=== PATIENT | male | born 1995 | race Two or more races ===

== ENCOUNTER 2025-08-02 10:13 | Outpatient (AMB) | payer OTHER, SELFPAY ==
--- NOTE | 2025-08-02 10:31 | AM.OFFWIN_ITS ---
Intake Vital Signs 08/02/25 10:32 Height 5 ft 11 in Weight 201 lb BMI 28.0 BP 106/60 Blood Pressure Location Rt brachial Position Sitting Pulse 62 Pulse Source Pulse Oximeter Temp 97.9 F Temp Source Oral Pulse Oximetry (%) 99 Oxygen Delivery Method Room Air Intake Visit Reasons: EP-rt eye swollen & pain Intake Note: pt presents with right eye swelling, redness and crust for a couple days now after a stye had calmed down prior Allergies No Known Allergies Allergy (Verified 08/02/25 10:34) Do you need a note to return to daycare/school/sports/work: No HPI HPI Comments History of Present Illness Details History of Present Illness - The patient is a 30-year-old male pres enting with right upper eyelid redness and swelling. - The patient reports a recurrent issue with styes, with the current episode starting about a week ago. - Initially, the patient used over-the-c ounter patches which seemed to resolve the issue temporarily, but symptoms returned two days ago with increased severity. - The patient describes significant pain and swelling, particularly in the corner of the eye. - The condition has progressed to includ e eyelid redness and swelling. - He had crusting to the eye yesterday a nd can no longer feel a bump on the eyelid. - He has not seen his eye doctor in quit e some time. - The patient has a history of recurrent styes but has not previously experienced lofr-ss-ppbw episodes within a week. - He denies fever, chills, cold symptoms , visual loss or changes. - He denies FB or contact lens. Physical Exam General: Cooperative, healthy appearing, comfortable, no acute distress and well developed Orientation: Patient oriented x3 Limitations: No limitations Head: Normal to inspection Ears: Hearing grossly normal bilaterally Nose: Normal external nose present Face and sinus: Normal facial exam Eyes: Redness and swelling noted on the right upper eyelid. No hordeolum noted. Sclera is white, conjunctiva is pink. No discharge noted. PERRLA, EOMI. No TTP of the eyelid. Neck: Normal visual inspection and Yes full ROM. No lymphadenopathy noted. Respiratory: Normal respiratory effort and able to speak in complete sentences. Clear to auscultation bilaterally Cardiovascular: Regular rate and rhythm. Normal S1 and S2 Skin: No rashes or lesions noted Patient was informed and verbally consented to the use of an ambient scribe for clinic note documentation during this visit. Review of Systems Const All systems reviewed & are unremarkable except as noted in HPI and below Physical Exam Vital Signs: Last Vital Signs Temp 97.9 F 08/02/25 10:32 Pulse 62 08/02/25 10:32 BP 106/60 08/02/25 10:32 Pulse Ox 99 08/02/25 10:32 Oxygen Delivery Method Room Air 08/02/25 10:32 BMI result Body Mass Index 28.0 Assessment & Plan Assessment & Plan (1) Hordeolum eyelid: Code(s): H00.019 - Hordeolum externum unspecified eye, unspecified eyelid Qualifiers: Hordeolum type: internum Laterality: right Eyelid: upper Qualified Code(s): H00.021 - Hordeolum internum right upper eyelid (2) Cellulitis of right upper eyelid: Code(s): H00.031 - Abscess of right upper eyelid Plan plan- 1. Eyelid Cellulitis - Initiate oral antibiotics, specifically Keflex, to address the infection. - Prescribe antibiotic eye drops to manage local infection and prevent further complications. - Advise the patient to apply warm compresses to the affected area to alleviate symptoms. - Recommend follow-up with an theater set production designer for ongoing management and to establish regular eye care. 2. Recurrent Styes - Educate the patient on the importance of regular eye examinations to monitor and manage recurrent styes. - Suggest maintaining eyelid hygiene to prevent future occurrences. Medications: New polymyxin B sulf-trimethoprim 10,000 unit- 1 mg/mL while awake 1 drp ophthalmic-Right QID 10 mL 0RF 5 days cephalexin 500 mg PO Q6H 28 caps 0RF Coding Level of Care Code Est Pt Level 3 (27983) Diagnoses Hordeolum internum of right upper eyelid H00.021 Hordeolum type: internum Laterality: right Eyelid: upper Cellulitis of right upper eyelid H00.031
[2025-08-02 10:32] VITALS: BP 106/60; PULSE 62; TEMP 36.6; O2SAT 99; BMI 28.0
== END 2025-08-02 11:32 | disposition home or self-care (01) ==
PROVIDERS: PCP Internal Medicine; Visit Provider Physician Assistant Medical
DX: H00.021 Hordeolum internum right upper eyelid (principal); H00.031 Abscess of right upper eyelid

== ENCOUNTER 2025-08-22 10:08 | Outpatient (AMB) | payer OTHER, SELFPAY ==
[2025-08-22 10:19] VITALS: BP 114/72; PULSE 81; RESP 18; TEMP 36.2; O2SAT 98; BMI 28.8
--- NOTE | 2025-08-22 10:19 | A.OFFPC_ITS ---
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: No Accompanied by: Self / Same As Patient Allergies No Known Allergies Allergy (Verified 08/22/25 10:22) Medication List - Last Reconciled 08/22/25 by Jem Sullivan MD No Known Home Meds Tobacco use date assessed: 08/22/25 Dental Screening Dental Screen Date: 08/22/25 Did you have a dental visit in the last 12 months?: Yes Did you have a dental problem in the last 6 months where you did not have access to dental care?: No Was dental information given to patient?: Patient has dentist HPI HPI Comments History of Present Illness Details The patient is a 30-year-old male presenting to [facility] care. The patient main complaints are intermittent left sided Lower quadrant abdominal pain and irregular bowel movements. He reports intermittent, sharp abdominal pain on the left side that radiates to his groin, occurring two to three times a month without a clear trigger. He rates the pain as a 6 out of 10 and notes the area feels very tender during episodes. The patient also reports irregular bowel movements and constipation, sometimes straining in the bathroom for 30 to 60 minutes. He has made dietary changes, including eating rice, chicken, and vegetables, avoiding junk food and late- night meals, and substituting soda with seltzer water, but has not experienced weight loss or improvement in his bowel habits. His diet includes a significant amount of cheese, yogurt, and bread, though he has reduced his intake of red meat. He has not tried any obpf-lrf-dvrsgby fiber supplements for constipation. Additional symptoms include intermittent numbness and a tingling sensation in his feet and left arm, which has become more frequent recently. He recalls having issues with vitamin B as a child. He also notes a painful lesion on his hand and an occasional itchy, stinging sensation in his belly button when he urinates. He has experienced rectal bleeding in the past but is unsure if it was from stool or a cut, and he denies pain with bowel movement. The patient's paternal grandmother was diagnosed with colon cancer at age 55. He quit smoking cigarettes two years ago after starting at age 11 and now uses nicotine vapes and Zyn pouches. He drinks beer occasionally but not hard liquor. He leads a sedentary lifestyle. He takes no medications but does take a daily vitamin. [facility] Medical History Severe back pain Social History Alcohol intake: current Patient Tobacco Use Status: Former Tobacco user Tobacco use type: Cigarette e-Cigarette/Vaping Use: Never Used Substance Use Type: Marijuana Current occupational status: employed Current occupation: labor relations manager Cognitive needs: No Hearing needs: No Vision needs: No Questionnaire Thrive Questionnaire Date Thrive assessed: 08/22/25 I am a: Patient What is your living situation today?: I have a steady place to live Within the past 12 months, did the food you bought not last and you didn't have the money to get more?: I choose not to answer this question Within the past 12 months, did you worry whether your food would run out before you got money to buy more?: I choose not to answer this question Do you have trouble paying for medicines?: I choose not to answer this question Do you have trouble getting transportation to medical appointments?: I choose not to answer this question Do you have trouble paying your heating and electricity bill?: I choose not to answer this question Do you have trouble taking care of your child, family member or friend?: No Do you have trouble with day-to-day activities such as bathing, preparing meals, shopping, managing finances, etc.?: No Are you currently unemployed and looking for a job?: No Are you interested in more education?: Yes THRIVE Score: 0 AUDIT C Alcohol Use Questionnaire (AUDIT-C) 1. How often do you have a drink containing alcohol?: Monthly or less 2. How many drinks containing alcohol do you have on a typical day when you are drinking?: 1 or 2 3. How often do you have six or more drinks on one occasion?: Never Total Score: 1 MARLENE-7 AMB Questionnaire MARLENE-7 Feeling nervous, anxious, or on edge: 1 = Several days Not being able to stop or control worryin = Several days Worrying too much about different things: 1 = Several days Trouble relaxin = Several days Being so restless that it is hard to sit still: 0 = Not at all Becoming easily annoyed or irritable: 0 = Not at all Feeling afraid as if something awful might happen: 2 = More than half the days Total MARLENE-7 score (0-4 normal; 5-9 mild; 10-14 moderate; 15-21 severe): 6 Source: Developed by Drs. Jimmy Paez, Benita Kim, Osiel Benz and colleagues, with an educational tran from [employer]. Review of Systems Const Details: Positives besides what was mentioned in HPI are in BOLD Constitutional: No Weight Change, No Fever, No Chills, No Night Sweats, No Fatigue, No Malaise ENT/Mouth: No Hearing Changes, No Ear Pain, No Nasal Congestion, No Sinus Pain, No Hoarseness, No sore throat, No Rhinorrhea, No Swallowing Difficulty Eyes: No Eye Pain, No Swelling, No Redness, No Foreign Body, No Discharge, No Vision Changes Cardiovascular: No Chest Pain, No SOB, No PND, No Dyspnea on Exertion, No Orthopnea, No Claudication, No Edema, No Palpitations Respiratory: No Cough, No Sputum, No Wheezing, No Smoke Exposure, No Dyspnea Gastrointestinal: No Nausea, No Vomiting, No Diarrhea, No Constipation, No Pain, No Heartburn, No Anorexia, No Dysphagia, No Hematochezia, No Melena, No Flatulence, No Jaundice Genitourinary: No Dysmenorrhea, No DUB, No Dyspareunia, No Dysuria, No Urinary Frequency, No Hematuria, No Urinary Incontinence, No Urgency, No Flank Pain, No Urinary Flow Changes, No Hesitancy Musculoskeletal: No Arthralgias, No Myalgias, No Joint Swelling, No Joint Stiffness, No Back Pain, No Neck Pain, No Injury History Skin: No Skin Lesions, No Pruritis, No Hair Changes, No Breast/Skin Changes, No Nipple Discharge Neuro: No Weakness, No Numbness, No Paresthesias, No Loss of Consciousness, No Syncope, No Dizziness, No Headache, No Coordination Changes, No Recent Falls Psych: No Anxiety/Panic, No Depression, No Insomnia, No Personality Changes, No Delusions, No Rumination, No SI/HI/AH/VH, No Social Issues, No Memory Changes, No Violence/Abuse Hx., No Eating Concerns Heme/Lymph: No Bruising, No Bleeding, No Transfusions History, No Lymphadenopathy Endocrine: No Polyuria, No Polydipsia, No Temperature Intolerance Physical exam (Primary Care) Vital Signs: Last Vital Signs Temp 97.1 F 08/22/25 10:19 Pulse 81 08/22/25 10:19 Resp 18 08/22/25 10:19 BP 114/72 08/22/25 10:19 Pulse Ox 98 08/22/25 10:19 Oxygen Delivery Method Room Air 08/22/25 10:19 BMI result Body Mass Index 28.8 Tobacco/Smoking Status: Tobacco use Status Tobacco use date assessed 08/22/25 08/22/25 10:27 Patient Tobacco Use Status Former Tobacco user 08/22/25 10:27 Tobacco use type Cigarette 08/22/25 10:27 e-Cigarette/Vaping Use Never Used 08/22/25 10:27 Thrive Assessment: Date of Thrive Assessment Date Thrive assessed 08/22/25 08/22/25 10:19 Const Other: Pertinent findings are in BOLD GENERAL APPEARANCE NAD, activity normal for age, well developed/ well nourished, no cyanosis, pallor, or diaphoresis. EYES lids/conjunctiva normal. EARS/NOSE/THROAT Mucous membranes moist, nares normal, lips/teeth normal uvula midline without oral pharyngeal erythema, exudate or swelling TMs normal bilaterally. No lymphangitis/lymphedema. HEAD/NECK normocephalic atraumatic, no facial trauma, neck is supple. RESPIRATORY respiratory effort normal, speaks in full sentences, no tripod position, no accessory muscle use. Lungs clear to auscultation without rhonchi, wheezes, rales CARDIAC Regular rate and rhythm, no edema. ABDOMINAL Soft, ND/NT. No evidence of fluid wave. No pulsatile masses on exam, rebound tenderness, Zimmerman sign or pain over Mcburney's point. MUSCLES/EXTREMITIES No abnormal range of motion, no swelling. SKIN Warm, pink and dry. No rashes, dermatoses, petechiae or lesions. NEUROLOGICAL Speech is clear and appropriate. Normal level of consciousness. Gait and coordination are normal. 5/5 strength in all extremities. PSYCH Normal mood and affect. Judgement/competence is appropriate Coding Level of Care Code New Pt Level 4 (26322) New Pt Prev Care 18-39yr([id number] Diagnoses Healthcare maintenance Z00.00 Constipation, unspecified constipation type K59.00 Constipation type: unspecified constipation type Left lower quadrant abdominal pain R10.32 Abdominal location: left lower quadrant Tingling R20.2 Hand lesion L98.9 Assessment & Plan Assessment & Plan (1) Healthcare maintenance: Code(s): Z00.00 - Encounter for general adult medical examination without abnormal findings Category: Medical Plan: CBC, CMP, Lipid panel, A1C, TSH w T4, vit D. Shingles 2 doses when >50 yo. At 50. COVID: two doses. Advised patient to get COVID shot from retail pharmacy. Pneumococcal: 18-49 with CKD, lung disease, weakened immune system, Heart disease, DM, cochlear implant. Indicated at 50. Flu vaccine: Patient concerned about coverage for the FLU and TDap shots. Advised patient to check with his insurance about coverage. And if it is covered he can get it from retail pharmacy. Tdap: every 10 years. Ordered today. Colonoscopy: 45-75. At 45. AAA: 65 -75. NI. CT lun - 80. NI. PSA: 50 -70 every two years. HIV: HBV: HCV: (2) Constipation: Code(s): K59.00 - Constipation, unspecified Category: Medical Qualifiers: Constipation type: unspecified constipation type Qualified Code(s): K59.00 - Constipation, unspecified Plan: - A dietary trial of eliminating all dairy products for one week was recommended to assess for improvement. - Other potential dietary triggers discussed include gluten, red meat, and sugar. - Recommended increasing intake of salads and dried fruits like apricots to help with bowel movements. - MiraLAX was prescribed. (3) Abdominal pain: Code(s): R10.9 - Unspecified abdominal pain Category: Medical Qualifiers: Abdominal location: left lower quadrant Qualified Code(s): R10.32 - Left lower quadrant pain Plan: Physical exam was benign today. No groin tenderness or testicular masses or changes. Continue management of constipation as it might be exacerbating his pain. Advised patient to seek ED or urgent care during an acute episode. (4) Tingling: Comment: In his feet and right arm. Code(s): R20.2 - Paresthesia of skin Category: Medical Plan: Advised kirby that his symptoms might be due to vitamin deficiencies. We will check folate and vit B12 levels. A1C also to be checked although the patient does not have history of diabetes. Further assesment if symptoms persist during next visit. (5) Hand lesion: Code(s): L98.9 - Disorder of the skin and subcutaneous tissue, unspecified Category: Medical Plan: - The lesion is possibly related to past gym activities. - Recommended conservative management with ice and observation, as it is expected to improve on its own. Plan I explained to the patient that his constipation and abdominal pain are most likely diet-related and recommended an elimination diet, starting with the complete removal of dairy products for one week to assess his symptoms. I emphasized that lifestyle changes are the primary solution, though I also prescribed MiraLAX. Regarding the abdominal pain, I advised that we should monitor it for now, as imaging is less likely to be revealing without active symptoms, and instructed him to go to an urgent care or ER if the pain becomes severe. We discussed the intermittent numbness and tingling, which I explained does not sound like a classic neuropathy, and I ordered Vitamin B12 and folic acid labs to investigate a potential deficiency. For the tender lesion on his hand, I recommended applying ice and advised that it will likely resolve on its own. We reviewed his preventative care needs, and I recommended he receive the annual flu shot and a tetanus vaccine. I ordered a panel of screening labs and scheduled a follow-up in one year. Orders: Orders Complete Blood Count no Diff Today Z00.00 - Encounter for general adult medical examination without abnormal findings Hemoglobin A1c Today Z00.00 - Encounter for general adult medical examination without abnormal findings Hepatitis B Core Antibody Today Z00.00 - Encounter for general adult medical examination without abnormal findings Vitamin B12 and Folate Today R20.2 - Paresthesia of skin Comprehensive Met. Panel Today Z00.00 - Encounter for general adult medical examination without abnormal findings Lipid Panel Today Z00.00 - Encounter for general adult medical examination without abnormal findings Hepatitis B Surface Antibody Today Z00.00 - Encounter for general adult medical examination without abnormal findings Hepatitis B Surface Antigen Today Z00.00 - Encounter for general adult medical examination without abnormal findings Hepatitis C Antibody Reflex Today Z00.00 - Encounter for general adult medical examination without abnormal findings HIV Ab/Ag Today Z00.00 - Encounter for general adult medical examination without abnormal findings TSH reflex Free T4 Today Z00.00 - Encounter for general adult medical examination without abnormal findings Vitamin D 25-OH Total Today Z00.00 - Encounter for general adult medical examination without abnormal findings UA and rflx microscopic Today R10.9 - Unspecified abdominal pain Medications: New polyethylene glycol 3350 (Miralax) 17 grams PO DAILY 119 grams 3RF
== END 2025-08-22 11:01 | disposition home or self-care (01) ==
LOC: HO.HMCH 10:08
PROVIDERS: PCP Internal Medicine; Visit Provider Internal Medicine
DX: K59.00 Constipation, unspecified (principal); R10.32 Left lower quadrant pain; R20.2 Paresthesia of skin; L98.9 Disorder of the skin and subcutaneous tissue, unspecified

== ENCOUNTER 2025-09-06 11:47 | Outpatient (REF) | payer OTHER, SELFPAY ==
[2025-09-06 12:48] LABS: Hematocrit 44.8 % (42.0-52.0); Hemoglobin 15.2 g/dl (14.0-18.0); Mean Corpuscular HGB Conc 33.9 g/dl (31.0-36.0); Mean Corpuscular Hemoglobin 29.6 pg (27.0-33.0); Mean Corpuscular Volume 87.2 fL (80.0-98.0); NRBC Abs Auto 0.000 X10*3/uL (0.0-0.012); NRBC Pct Auto 0.0 /100WBC (0.0-0.2); Platelet Count 287 X10*3/uL (160-400); Red Blood Count 5.14 X10*6/uL (4.60-5.80); White Blood Count 4.3 X10*3/uL (4.8-10.8)
[2025-09-06 13:26] LABS: Alanine Aminotransferase 30 U/L (0-40); Albumin Level 4.7 g/dL (3.5-5.0); Alkaline Phosphatase 80 U/L (39-117); Anion Gap 10 (12-20); Aspartate Amino Transferase 29 U/L (5-37); Blood Urea Nitrogen 14 mg/dL (9-16); Calcium 9.9 mg/dL (8.4-10.2); Carbon Dioxide 26 mmol/L (22-29); Chloride 108 mmol/L (96-108); Cholesterol 201 mg/dL (<200); Estimated Glomerular Filt Rate > 60; HDL Cholesterol 65 mg/dL (>40); Potassium 4.1 mmol/L (3.3-5.1); Sodium 140 mmol/L (135-145); Total Protein 7.6 g/dL (6.5-8.0); Triglycerides 76 mg/dL (<150)
[2025-09-06 13:45] LABS: Appearance Urine Clear; Glucose Urine UA Negative (Negative); PH 6.0 (5.0-9.0); Specific Gravity - Urine 1.025 (1.005-1.025)
[2025-09-06 13:49] LABS: Folate 9.2 ng/mL (> or = 4.0); Vitamin B12 664 pg/mL (200-900)
[2025-09-07 04:37] LABS: HBS Num1 3.67 mIU/mL (0-7.99); HBc Num1 0.06 S/CO (0.00-0.79); HBsAGNum1 0.40 S/CO (0.00-0.99); HIV Num 1 0.06 S/CO (0.00-0.99); Hepatitis B Surface Antigen Negative (Negative); ~HepC Num1 0.11 S/CO (0.00-0.79); ~Hepatitis B Surface Antibody NONREACTIVE (Nonreactive); ~Hepatitis C Antibody Nonreactive (Nonreactive)
== END 2025-09-06 11:48 | disposition home or self-care (01) ==
LOC: HO.LAB 11:47
PROVIDERS: PCP Internal Medicine; Visit Provider Internal Medicine
DX: Z00.00 Encounter for general adult medical examination without abnormal findings (principal); R20.2 Paresthesia of skin; R10.9 Unspecified abdominal pain; Z11.4 Encounter for screening for human immunodeficiency virus [HIV]; Z20.6 Contact with and (suspected) exposure to human immunodeficiency virus [HIV]; Z13.1 Encounter for screening for diabetes mellitus; Z13.6 Encounter for screening for cardiovascular disorders; Z13.21 Encounter for screening for nutritional disorder
CPT/HCPCS: 36415; 80053; 80061; 81003; 82306; 82607; 82746; 83036; 84443; 85027; 86704; 86706; 86803; 87340; 87389